=== PATIENT | male | born 1965 | race Caucasian/White ===

== ENCOUNTER 2021-06-21 14:02 | Emergency (ER) | payer OTHER, SELFPAY ==
[2021-06-21 14:12] VITALS: BP 129/70; PULSE 99; RESP 18; TEMP 36.6; O2SAT 100
--- NOTE | 2021-06-21 14:15 | ED.WOUNDLAC ---
HPI - Wound/Laceration General Chief Complaint: Wound/Laceration Stated Complaint: suture removal Time Seen by Provider: 06/21/21 14:20 Source: patient, RN notes reviewed and old records reviewed Mode of arrival: ambulatory Limitations: no limitations History of Present Illness HPI narrative: 55 year old male present to express care with stated need today to have sutures removed from wound of right hand near web space of third finger. which were placed 8 days ago. Patient states that he has not had any drainage from wound site but large scab area fell off a few days ago. Patient states that his tetanus was updated at time of suturing. Some gaping of wound noted at distal edges with minimal redness noted. Onset (ago): day(s) (8) Extremity Location: Right: hand (dorsal aspect near webbing of 3rd finger) Patient tetanus UTD: Yes Context: accidental Related Data Home Medications Medication Instructions Recorded Confirmed aspirin 81 mg PO DAILY 06/21/21 06/21/21 atorvastatin 10 mg PO DAILY 06/21/21 06/21/21 dulaglutide [Trulicity] 1.5 mg SUBCUT DIRECTED 06/21/21 06/21/21 empagliflozin-metformin [Synjardy] 1 tablet PO BID 06/21/21 06/21/21 hydrochlorothiazide 12.5 mg PO DAILY 06/21/21 06/21/21 icosapent ethyl [Vascepa] 1 g PO TID 06/21/21 06/21/21 lisinopril 20 mg PO DAILY 06/21/21 06/21/21 multivit with min-folic acid 1 tablet PO DAILY 06/21/21 06/21/21 [Adult One Daily Multivitamin] Allergies Allergy/AdvReac Type Severity Reaction Status Date / Time No Known Allergies Allergy Verified 06/21/21 14:19 Review of Systems Review of Systems: CONSTITUTIONAL: Denies fever, chills, or sweats. EYES: Denies visual changes, redness, or discharge. ENT: Denies rhinorrhea, congestion, sore throat, or otalgia. CARDIOVASCULAR: Denies chest pain, palpitations, or edema. RESPIRATORY: Denies cough or dyspnea. GASTROINTESTINAL: Denies abdominal pain, nausea, vomiting, or diarrhea. GENITOURINARY: Denies dysuria or hematuria. SKIN: Denies rash or itching. healing wound with 3 stitches present to right hand MUSCULOSKELETAL: Denies back pain, joint pain, or myalgia. NEUROLOGIC: Denies headache, numbness, or weakness. PSYCHIATRIC: Denies anxiety or depression. All systems reviewed & are unremarkable except as noted in HPI and below PMFSH Past Medical History Medical History (Updated 06/21/21 @ 23:06 by Akanksha Burgos NP) Diabetes Elevated cholesterol Hypertension Social History Social History (Updated 06/21/21 @ 23:07 by Akanksha Burgos NP) Smoking status: Never smoker Alcohol intake: unknown Substance use type: does not use Living arrangements: with family Gender identity (if verbalized by the patient): Male Comments At time of signature, agree with nursing past medical, surgical, social and family history. There is no relevant family history pertinent to the presenting complaint Exam Narrative: GENERAL: Well-appearing, well-nourished, and in no acute distress. HEAD: Normocephalic, atraumatic. EYES: PERRLA and EOMI. ENT: Nares clear, no rhinorrhea or epistaxis. Mucous membranes moist.TM's normal with good light reflex, throat normal with no lesions or exudates NECK: Supple.no lymphadenopathy CHEST: Clear to auscultation. No respiratory distress.SAO2 100% on room air HEART: Regular rate and rhythm. No murmur heard. Normal peripheral pulses. ABDOMEN: Soft, nontender, nondistended, normal active bowel sounds. EXTREMITIES: Normal range of motion. No edema. SKIN: Warm, dry, no rash. Healing wound to right hand small area of gaping at distal area of wound, no drainage noted. NEURO: No focal deficits. Alert and oriented x3. Course Course Level of Care: Express Care Visit Vital Signs Vital signs: Vital Signs Temperature 36.6 C 06/21/21 14:12 Pulse Rate 99 06/21/21 14:12 Respiratory Rate 18 06/21/21 14:12 Blood Pressure 129/70 06/21/21 14:12 Pulse Oximetry 100 06/21/21 14:12 Temperature 36.6
== END 2021-06-21 14:45 | disposition home or self-care (01) ==
PROVIDERS: Emergency Provider Registered Nurse; PCP Internal Medicine
DX: S61.411D Laceration without foreign body of right hand, subsequent encounter (principal); X58.XXXD Exposure to other specified factors, subsequent encounter; E11.9 Type 2 diabetes mellitus without complications; E78.00 Pure hypercholesterolemia, unspecified; I10 Essential (primary) hypertension; Z79.82 Long term (current) use of aspirin
CPT/HCPCS: 99213; G0463